=== PATIENT | female | born 1945 | race Caucasian/White ===

== ENCOUNTER → 2022-08-06 | Emergency (ER) | payer MEDICARE, BC ==
[~2022-08-06] VITALS: Ht 157.5 cm; Wt 64.5 kg
[~2022-08-06] MED LIST: CEPH250T PO; LEVO25TA2 PO; MECL-159 PO
[2022-08-06 15:07] VITALS: BP 138/67
== END | disposition home or self-care (01) ==
LOC: ER 14:30
DX: T14.8XXA Other injury of unspecified body region, initial encounter (principal); I11.9 Hypertensive heart disease without heart failure; Z88.5 Allergy status to narcotic agent; Z79.899 Other long term (current) drug therapy; Z79.1 Long term (current) use of non-steroidal anti-inflammatories (NSAID); X58.XXXA Exposure to other specified factors, initial encounter; Y93.89 Activity, other specified; Y92.89 Other specified places as the place of occurrence of the external cause; Y99.8 Other external cause status
CPT/HCPCS: 99284; A6449